=== PATIENT | female | born 1955 | race Caucasian/White ===

== ENCOUNTER → 2017-04-05 | Outpatient (CLI) | payer BC ==
[~2017-04-05] MED LIST: BCPILLS PO; CEPH500C PO
--- NOTE | 2017-04-06 16:02 | MAMMOGRAPHY REPORT ---
BILATERAL DIGITAL SCREENING MAMMOGRAM TOMOSYNTHESIS WITH CAD: 04/05/2017 CLINICAL HISTORY: Routine screening. Patient has no complaints. TECHNIQUE: Breast tomosynthesis in addition to standard 2D mammography was performed. Current study was also evaluated with a Computer Aided Detection (CAD) system. COMPARISON: Comparison is made to exams dated: 03/22/2016 mammogram, 03/13/2015 mammogram, 03/12/2014 ma mmogram, 03/09/2013 mammogram, 03/08/2012 mammogram, and 03/01/2011 mammogram - [facility]ter. BREAST COMPOSITION: The tissue of both breasts is heterogeneously dense, which may obscure small mas ses. FINDINGS: There are new regional microcalcifications in the upper outer quadrant of the left breast in addition to approximately 3 asymmetries with possible associated architectural distortion. Additi onal spot magnification views and targeted ultrasound are recommended. There are possible grouped mi crocalcifications in the 12:00 posterior right breast, for which additional spot magnification views are recommended. No other other suspicious finding is identified bilaterally. IMPRESSION: ACR BI-RADS CATEGORY 0: INCOMPLETE EVALUATION: NEED ADDITIONAL IMAGING EVALUATION The new regional microcalcifications in the left upper outer quadrant, left breast asymmetries and po ssible right breast microcalcifications need additional imaging evaluation (30 minutes). The patient will be called to schedule an appointment. Approximately 10% of breast cancers are not detected with mammography. A negative mammographic report should not delay biopsy if a clinically suggestive mass is present. Fidelia Loya M.D. ay/:04/05/2017 19:13:34 Forensic Materials Engineer: Crystal PANDYA(Josemanuel)(Norma)(MURALI), [facility] letter sent: Addl Imaging 0 BI-RADS Code: ACR BI-RADS Category 0: Incomplete Evaluation: Need Additional Imaging Evaluation
== END | disposition home or self-care (01) ==
LOC: C.MAMM 07:55
PROVIDERS: ATTEND Orthopaedic Surgery
DX: Z12.31 Encounter for screening mammogram for malignant neoplasm of breast (principal); R92.0 Mammographic microcalcification found on diagnostic imaging of breast; R92.8 Other abnormal and inconclusive findings on diagnostic imaging of breast

== ENCOUNTER → 2017-04-22 | Outpatient (CLI) | payer BC ==
--- NOTE | 2017-04-25 15:53 | MAMMOGRAPHY REPORT ---
BILATERAL DIGITAL DIAGNOSTIC MAMMOGRAM TOMOSYNTHESIS AND TARGETED LEFT ULTRASOUND: 04/22/2017 CLINICAL HISTORY: Callback from screening mammogram for bilateral breast calcifications and left ranjan st asymmetries. TECHNIQUE: Breast tomosynthesis in addition to standard 2D mammography was performed. Bilateral spo t magnification CC and ML views and spot compression left CC and MLO tomosynthesis images including C views were obtained. COMPARISON: Comparison is made to exams dated: 04/05/2017 mammogram, 03/22/2016 mammogram, 03/13/2015 ma mmogram, 03/12/2014 mammogram, 03/09/2013 mammogram, and 03/08/2012 mammogram - [facility] nter. BREAST COMPOSITION: The tissue of both breasts is heterogeneously dense, which may obscure small mas ses. FINDINGS: Spot magnification views of the left breast demonstrate new grouped pleomorphic calcificat ions within the left upper outer quadrant, with extent of calcifications measuring approximately 3.8 x 3.8 x 3.5 cm. The previously described asymmetries seen within the left superior breast are less p rominent on the spot compression views, with no clear masses or areas of architectural distortion not ed mammographically. Spot magnification views of the right breast demonstrate a single punctate zane gn calcification in the right 12:00 breast which is stable compared to prior exams, without a suspici ous cluster of calcifications noted. Targeted ultrasound was performed of the left breast in the region of the mammographic asymmetries an d calcifications. In the left breast at 5:00, 3 cm from the nipple, there is a possible hypoechoic n on-circumscribed 6 x 5 mm mass. In the left breast at 4:00 periareolar region, there is a hypoechoic oval circumscribed 3 x 5 mm mass which may represent a complicated cyst versus solid mass. In the l eft 4:00 subareolar breast, there is a round circumscribed hypoechoic mass which measures 3 x 3 mm, w hich may represent a complicated cyst versus solid mass. In the left breast at 3:00, 3 cm from the n ipple, there is an irregular hypoechoic solid appearing mass which measures 4 x 4 x 4 mm. In the lef t 2:00 periareolar breast, there is an oval isoechoic circumscribed 7 x 8 x 4 mm mass, which has the appearance of a normal fat lobule during real-time scanning. In the left breast at 12:00, 2 cm from the nipple, there is an oval mixed echogenicity, partially anechoic and partially isoechoic mass whic h measures 7 x 6 x 3 mm, which may represent a cyst cluster. Ultrasound of the left axilla demonstra lauri morphologically normal left axillary lymph nodes, without evidence of axillary adenopathy. Given that the calcifications are new, they are indeterminate and stereotactic biopsy is recommended for further evaluation. Also recommend ultrasound guided biopsy of one of the masses seen on ultraso und, likely the irregular mass in the left 3:00 breast. IMPRESSION: ACR BI-RADS CATEGORY 4C: MODERATE SUSPICION FOR MALIGNANCY, TARGETED ULTRASOUND ACR BI-R ADS CATEGORY 4C: MODERATE SUSPICION FOR MALIGNANCY 1. New pleomorphic calcifications in the left upper outer quadrant, with extent of calcifications me asuring up to 3.8 cm. The calcifications are indeterminate and stereotactic biopsy is recommended fo r further evaluation. 2. A few small hypoechoic masses seen on ultrasound within the left breast at 12:00, 3:00, 4:00, and 5:00. Recommend ultrasound guided biopsy of one of the masses, likely the irregular 4 mm mass at 3: 00. If pathology results are malignant, recommend bilateral breast MRI to evaluate the extent of dis ease. 3. No suspicious calcifications within the right breast on additional views. A phone call was made to the physician's office to confirm faxed results were received. The patient has been verbally notified of the results. She scheduled the biopsies before leaving the department. Approximately 10% of breast cancers are not detected with mammography. A negative mammographic report should not delay biopsy if a clinically suggestive mass is present. Kym Shea M.D. ah/:04/22/2017 16:49:26 Asphalt Mixing Machine Operator: Trisha Hernandez, [facility] letter sent: Abnormal 4/5 BI-RADS Code: ACR BI-RADS Category 4C: Moderate Suspicion For Malignancy Ultrasound BI-RADS: ACR BI- RADS Category 4C: Moderate Suspicion For Malignancy
== END | disposition home or self-care (01) ==
LOC: C.MAMM 10:25
PROVIDERS: ATTEND Orthopaedic Surgery
DX: R92.1 Mammographic calcification found on diagnostic imaging of breast (principal); N64.89 Other specified disorders of breast; N63 Unspecified lump in breast

== ENCOUNTER → 2017-04-26 | Outpatient (CLI) | payer BC ==
--- NOTE | 2017-04-26 13:50 | Discharge Instructions ---
Discharge Instructions Procedure Procedure Date: Apr 26, 2017. Reason for visit: Left Calcs/Us Core Left Mass. Discharge Discharge Date: Apr 26, 2017. Discharge Diagnosis: post left breast ultrasound guided core biopsy 3:00 and stereotactic guided biopsy approx 2:00 Instructions Activity Recommendations: Additional Limitations (see below) Return to School/Work: no limitations Recommended Home Diet: No Limitations Provider Instructions: ACTIVITY RECOMMENDATIONS: * No lifting, pushing, pulling or exercising the affected side for three days. RETURN TO SCHOOL/WORK: * You may return to work/school after the procedure, but do not perform any strenuous activities for 24 to 48 hours. MEDICATIONS: * Tylenol (two 325 mg) every four to six hours if needed for mild pain (if not allergic to Tylenol). DIET: * Resume previous diet. SPECIAL CARE INSTRUCTIONS: * Keep biopsy site dry for 24 hours. May shower after 24 hours, but do not soak (bathe) incision. * May remove Tegaderm (plastic patch) tomorrow AFTER showering. * Leave the steri-strips on for one week. Allow the steri-strips to fall off by themselves. If not off after one week, you may remove them. You may place a Bandaid crosswise over the strips, if desired. * Apply ice 10 minutes on and 10 minutes off as needed. * Wear a bra at bedtime to sleep more comfortably for 2-3 days. * Your referring physician should have the results after approximately 5 to 7 business days. * Call for unusual bleeding, fever, drainage, etc or if you have any questions call [phone] during normal business hours or after hours call Dr Loya, . FOLLOW UP VISIT: Follow-up with Referring Physician as scheduled. Allergies Coded Allergies: No Known Allergies (Verified Allergy, Unknown, 06/18/08) Paresh Laurent Recommendations: Call your doctor if: * Temperature above 101 degrees * Pain not relieved by pain medicine ordered * There is increased drainage or redness from any incision * You have any unanswered questions or concerns. Your Doctors Instructions noted above were prepared by provider Fidelia Loya. Patient Signature Section: Patient Instructions Signature Page Julianna Velázquez Patient (or Guardian) Signature/Date: I have read and understand the instructions given to me by my caregivers. Caregiver/RN/Doctor Signature/Date: The above-named patient and/or guardian has received patient instructions on this date. + Original Patient Signature Page (only) stays with chart. Please make copy for patient.
--- NOTE | 2017-04-27 14:21 | MAMMOGRAPHY REPORT ---
ULTRASOUND GUIDED BIOPSY LEFT BREAST: 04/26/2017 CLINICAL HISTORY: Irregular hypoechoic 4 mm mass in the 3:00 left breast and segmental pleomorphic mi crocalcifications in the upper outer quadrant of the left breast. Patient presents for ultrasound-gu ided core biopsy of the mass identified on ultrasound, and stereotactic guided biopsy of the microcal cifications. COMPARISON: Comparison is made to exams dated: 04/22/2017 ultrasound, 04/22/2017 mammogram, 04/05/2017 ma mmogram, 03/22/2016 mammogram, 03/13/2015 mammogram, and 03/12/2014 mammogram - [facility]. PATIENT CONSENT: The procedure, risks and benefits were discussed with the patient and informed conse nt was obtained both verbally and in writing. Specific risks to this procedure include: bleeding, in fection, puncture of adjacent structure, nontarget biopsy, sampling error, pain, metal allergy and me dication reaction. ULTRASOUND PROCEDURE DESCRIPTION: A time out was performed and the left breast was agreed as the site of biopsy. The skin was prepped and draped in the usual sterile fashion. The angular 4 mm solid mass in the 3:00 left breast was chosen as the target for biopsy. Subcutaneous and intraparenchymal 1% bu ffered lidocaine, with and without epinephrine, was administered as local anesthesia. A skin incision was made. Through the incision, 3 samples were taken with a 14 gauge Achieve biopsy device. A ribbo n shaped metallic marker was placed at the biopsy site. Hemostasis was achieved after manual compress ion. The patient tolerated the procedure well and there was no immediate complication. The samples w ere sent to the pathology department in an appropriately labeled container. Immediately following the ultrasound-guided core biopsy in the left breast, a stereotactic guided lef t breast biopsy was performed of the segmental pleomorphic microcalcifications also in the left breas t. The mammograms obtained after both procedures demonstrate 2 metallic biopsy markers within the left b reast. The ribbon-shaped clip in the 3:00 posterior breast denotes the ultrasound guided core biopsy , and the dumbbell shaped metallic biopsy marker denotes the stereotactic guided biopsy. The the mar kers are located 3.2 cm distal to each other on the MLO projection, and 1.7 cm apart on the CC projec tion. IMPRESSION: ULTRASOUND GUIDED BIOPSY 1. Status post ultrasound-guided core biopsy of an angular hypoechoic 4 mm solid mass in the 3:00 le ft breast, with ribbon-shaped biopsy marker clip placed at the site. 2. A stereotactic biopsy was also performed in the left breast approximately 2:00 axis during the sa me appointment, and a dumbbell-shaped biopsy marker clip was placed at that site. The patient will receive notification of the biopsy results from her referring physician. Fidelia Loya M.D. ay/:04/26/2017 15:11:31 Attending Technologist: Dr. Fidelia Loya, [facility] Crate Repairer: Roberto PANDYA(R)(M), [facility]
--- NOTE | 2017-04-27 14:21 | MAMMOGRAPHY REPORT ---
THIS REPORT HAS BEEN AMENDED. MULTIPLE STEREOTACTIC GUIDED BIOPSIES LEFT BREAST: 04/26/2017 CLINICAL HISTORY: Irregular hypoechoic 4 mm mass in the 3:00 left breast and segmental pleomorphic mi crocalcifications in the upper outer quadrant of the left breast. Patient presents for ultrasound-gu ided core biopsy of the mass identified on ultrasound, and stereotactic guided biopsy of the microcal cifications. COMPARISON: Comparison is made to exams dated: 04/22/2017 ultrasound, 04/22/2017 mammogram, 04/05/2017 ma mmogram, 03/22/2016 mammogram, 03/13/2015 mammogram, and 03/12/2014 mammogram - [facility]. PATIENT CONSENT: After explaining the risks, benefits and alternatives of the procedure to the patien t, informed consent was obtained both verbally and in writing. Specific risks include: Bleeding, inf ection, puncture of adjacent structure, pain, nontarget biopsy, sampling error, metal allergy and med ication reaction. PROCEDURE DESCRIPTION: A time-out was performed and the left breast was confirmed as the site of biop sy. The patient was placed prone on the stereotactic biopsy table and the breast was placed in latera lmedial compression. A product steward image was obtained that demonstrated the segmental microcalcifications in question. They are amenable to sterotactic biopsy. Then +15 and -15 stereo pair images were obt ained. The calcifications were targeted utilizing the coordinates obtained by the computer. The skin was prepped with Betadine. 1% Lidocaine with and without epinipherine was administered as local anes thesia. A small skin incision was made. Through the incision, the needle was inserted to the depth d etermined by the computer. 6 samples were obtained using a [employer] 9-gauge vacuum-assisted biopsy device. The specimen radiograph demonstrated several customer service representative teacher microcalcifications, therefore, a metallic marker was placed at the biopsy site. There was no immediate complication. Hemostasis was achieved after several minutes of manual compression. The samples were sent to pathology in 1 approp riately labeled container, given that calcifications were noted within every core specimen. An ultrasound-guided core biopsy was also performed for an irregular 4 mm hypoechoic mass in the 3:00 left breast. Please refer to the ultrasound guided core biopsy report for full detail. CC and ML views of the left breast were obtained after both the ultrasound guided core biopsy and penelope reotactic guided biopsy. A new ribbon-shaped clip is seen in the 3:00 axis, with a small, 1 cm nishant olu at that biopsy site. A dumbbell-shaped biopsy marker clip denotes the stereotactic biopsy in th e approximate 2:00 middle one third of the left breast. The biopsy marker clips are located 3.2 cm d istal to each other in the lateral projection, and 1.7 cm distal to each other in the CC projection. IMPRESSION: STEREOTACTIC GUIDED BIOPSY 1. Status post left breast stereotactic guided biopsy of segmental pleomorphic microcalcifications i n the upper outer quadrant of the left breast, with dumbbell-shaped metallic biopsy marker placed at the site. 2. Ultrasound guided core biopsy was also performed in the left breast 3:00 axis. The patient will receive notification of the biopsy results from her referring physician. Fidelia Loya M.D. ay/:04/26/2017 15:15:31 Attending Technologist: Trisha PANDYA(R)(M), [facility] Valve Machine Operator: Roberto PANDYA(R)(M), [facility] AMENDMENT: 05/02/2017 Fidelia Loya M.D. Pathology results from the stereotactic guided biopsy of segmental microcalcifications in the lateral left breast yielded high-grade DCIS multifocal E distributed in the submitted tissue, the largest fo cus measuring 3 mm in greatest dimension. Estrogen receptor negative and weekly progesterone recepto r positive. The pathology results are concordant with the imaging appearance. It should be noted that the new segmental microcalcifications are approximately 3.5 x 3.8 x 3.8 cm oc cupying the approximate 2:00 through 4:00 axes posterior through anterior one third of the breast. The ultrasound-guided core biopsy performed at the same time of an irregular hypoechoic mass in the 3 :00 left breast yielded benign breast parenchyma. The pathology results are concordant with the imag ing appearance. However, other masses were identified throughout the lateral left breast on prior diagnostic ultrasou nd. With the newly diagnosed DCIS, and dense breasts, would recommend further evaluation with breast MRI prior to definitive treatment to assess for any other enhancement of the other masses seen in th e left breast, and also assess for any possible contralateral disease. These recommendations were discussed with Dr. Velázquez on 05/02/2017.
--- NOTE | 2017-04-29 08:55 | MAMMOGRAPHY REPORT ---
UNILATERAL LEFT DIGITAL DIAGNOSTIC MAMMOGRAM TOMOSYNTHESIS: 04/26/2017 CLINICAL HISTORY: Status post left breast ultrasound guided core biopsy of an irregular mass in the 3 :00 axis, and stereotactic guided biopsy of segmental microcalcifications in the upper outer quadrant . Please refer to the reports from left breast stereotactic biopsy and ultrasound guided core biopsy pe rformed at the same time for full detail. IMPRESSION: POST PROCEDURE IMAGING FOR MARKER PLACEMENT Please refer to the reports from left breast stereotactic biopsy and ultrasound guided core biopsy pe rformed at the same time for full detail. Approximately 10% of breast cancers are not detected with mammography. A negative mammographic report should not delay biopsy if a clinically suggestive mass is present. Fidelia Loya M.D. ay/:04/26/2017 14:02:13 Instrument Checker: Roberto PANDYA(R)(M), [facility] BI-RADS Code: Post Procedure Imaging For Marker Placement
== END | disposition home or self-care (01) ==
LOC: C.MAMM 12:21
PROVIDERS: ATTEND Orthopaedic Surgery
DX: R92.0 Mammographic microcalcification found on diagnostic imaging of breast (principal); D05.12 Intraductal carcinoma in situ of left breast

== ENCOUNTER → 2017-05-03 | Outpatient (CLI) | payer BC ==
--- NOTE | 2017-05-03 15:57 | DIAGNOSTIC IMAGING REPORT ---
TWO VIEW CHEST CLINICAL HISTORY: Preoperative examination. FINDINGS: PA and lateral chest radiographs are obtained. No prior studies are available for comparison at the time of dictation. The cardiomediastinal silhouette is unremarkable. Calcified granuloma is noted in the left lower lobe. The lungs and pleural spaces are otherwise clear. There is no pneumothorax. The bony thorax appears intact. Cholecystectomy clips are seen in the right upper quadrant. IMPRESSION: No active disease in the chest. Electronically signed by: Porfirio Woodard M.D. 05/03/2017 3:56 PM Dictated Date/Time: 05/03/2017 3:55 PM
[2017-05-03 16:34] LABS: BASO % 0.2 %; BASO ABS # 0.01 K/uL (0-0.2); COMPLETE YES; EOS % 0.6 %; HEMATOCRIT 39.9 % (37-47); IG% 0.2 %; LYMPH ABS # 1.28 K/uL (1.2-3.4); MEAN CELL VOLUME 96.1 fL (80-100); MEAN CORPUSCULAR HEMOGLOBIN 31.6 pg (25-34); MEAN CORPUSCULAR HGB CONC 32.8 g/dl (32-36); MEAN PLATELET VOLUME 10.8 fL (7.4-10.4); MONO % 8.8 %; NEUT % 66.2 %; PLATELET COUNT 294 K/uL (130-400); RED BLOOD COUNT 4.15 M/uL (4.2-5.4); WHITE BLOOD COUNT 5.33 K/uL (4.8-10.8)
[2017-05-03 16:57] LABS: ALT/SGPT 23 U/L (12-78); AST/SGOT 31 U/L (15-37); BLOOD UREA NITROGEN 12 mg/dl (7-18); BUN/CREATININE RATIO 17.2 (10-20); CALCIUM 9.7 mg/dl (8.5-10.1); CARBON DIOXIDE 30 mmol/L (21-32); CHLORIDE 104 mmol/L (98-107); CREATININE 0.68 mg/dl (0.60-1.20); GLUCOSE 98 mg/dl (70-99); POTASSIUM 4.4 mmol/L (3.5-5.1); SODIUM 139 mmol/L (136-145)
[2017-05-03 16:59] LABS: ALB/GLOB RATIO 1.1 (0.9-2); ALKALINE PHOSPHATASE 69 U/L (45-117)
== END | disposition home or self-care (01) ==
LOC: C.CPL 15:16
PROVIDERS: ATTEND Orthopaedic Surgery
DX: D05.90 Unspecified type of carcinoma in situ of unspecified breast (principal)

== ENCOUNTER → 2017-05-04 | Outpatient (CLI) | payer BC ==
[~2017-05-04] MED LIST changes: +GADAVIST IV PRN
--- NOTE | 2017-05-05 12:39 | MAMMOGRAPHY REPORT ---
BREAST MRI OF BOTH BREASTS : 05/04/2017 CLINICAL HISTORY: 61-year-old woman with recently diagnosed left breast DCIS. She presents for breas t MRI evaluation of extent of disease and also to exclude contralateral disease. COMPARISON: Comparison is made to exams dated: 04/26/2017 ultrasound biopsy, 04/26/2017 mammogram, 04/15 stereotactic biopsy, 04/22/2017 ultrasound, 04/22/2017 mammogram, and 04/05/2017 mammogram - [facility]. TECHNIQUE: Using a 1.5 Migdalia magnet and dedicated breast coil, multisequence axial images were obtain ed through the breasts. After uneventful IV administration of 5.5 mL of Gadavist, dynamic multiphase contrast-enhanced axial images, and sagittal postcontrast were obtained. Temporal subtraction axial images and 3-D MIP images are provided. Everything was then reviewed on a 3-D workstation, [employer]. FINDINGS: Right breast: There is mild background parenchymal enhancement. There is conspicuous linear enhancem ent in the 5:00 middle one third of the right breast measuring 5 x 3 mm. There are associated washou t kinetics and no significant T2 hyperintensity. This is best seen on axial page 82/116, sagittal pa ge 89/120. This is indeterminate and warranting targeted second look ultrasound. If second look ult rasound is unyielding, MRI guided biopsy may be needed. Another conspicuous angular enhancing focus is identified in the 12:00 posterior right breast measuring 3 x 4 mm (axial page 63/116, sagittal pag e 90/120), which demonstrates central washout kinetics and is indeterminate. Targeted second look ul trasound is recommended, with possible ultrasound-guided core biopsy. A few other enhancing foci are scattered in the right breast. No dominant enhancing mass, focal area of architectural distortion o r skin thickening is identified. The retromammary fat is intact. No suspicious right axillary, subp ectoral or intramammary lymphadenopathy. Left breast: There is mild background parenchymal enhancement. There is confluent clumped non-mass e nhancement throughout the left breast from approximate 1:00 to 2:00 axes through 4:00 to 5:00 axes, i nvolving the middle and posterior one third of the breast, spanning approximately 5 cm in craniocauda l by 3.5 cm in AP by 3 cm in transverse dimension. Susceptibility artifact is seen in the 2:00 middl e one third of the left breast, denoting the site of stereotactic biopsy which yielded high-grade DCI S. A second biopsy site denoted by a second area of susceptibility artifact performed with ultrasoun d guidance in the 3:00 axis of the left breast yielded benign pathology results. However, there are other areas of mass enhancement within the left breast, particularly the 12:00, 4:00 anterior and 5:0 0 posterior breast. There is a heterogeneous rim-enhancing mass in the 12:00 anterior left breast me asuring 6 x 6 x 9 mm, with associated plateau and washout kinetics (axial page 52/116 and sagittal pa ge 26/120). It is T2 hyperintense, and likely correlates with the mass identified in the 12:00 axis on ultrasound. A round homogeneously enhancing mass in the 4:00 anterior left breast measures 4 x 4 mm and demonstrates washout kinetics (axial page 77/116, sagittal page 22/120). This mass is T2 hypo intense and may correlate with the rounded mass seen in the 4:00 retroareolar left breast on prior ul trasound. An ovoid masslike area of enhancement in the 5:00 posterior left breast is adjacent to the clumped non-mass enhancement but still remains a discrete mass. This is thought to correlate with t he mass identified in the 5:00 axis on prior ultrasound. If breast conservation therapy is being con sidered, would recommend biopsy of the masses in the 12:00 and 4:00 axes. No suspicious left axillary, subpectoral or internal mammary lymphadenopathy is identified. No focal skin thickening or nipple retraction. The clumped non-mass enhancement abuts the left pectoralis mu scle, but there is no definite muscle enhancement to suggest invasion. IMPRESSION: ACR BI-RADS CATEGORY 4: SUSPICIOUS 1. There is susceptibility artifact from a biopsy marker clip in the 2:00 middle one third of the le ft breast, denoting the recent biopsy-proven DCIS. Clumped non-mass enhancement likely representing DCIS surrounds the biopsy marker clip and extends throughout the left upper outer and lower outer jailene drants spanning approximately 3.0 x 3.5 x 5.0 cm. 2. There are at least 3 discrete subcentimeter enhancing masses in the left breast at 12:00 anterior , 4:00 anterior and 5:00 posterior, thought to correlate with masses identified on prior diagnostic u ltrasound. If breast conservation therapy is desired, would biopsy the masses in the 12:00 and 4:00 axes. 3. Scattered foci of enhancement throughout the right breast with a discrete angular 3 x 4 mm focus of enhancement in the 12:00 posterior, and linear non-mass enhancement in the 5:00 right breast measu ring 5 x 3 mm, for which targeted second look ultrasound with possible ultrasound-guided core biopsie s are recommended. If second look ultrasound is unyielding, MRI guided biopsy may be needed, particu larly for the linear enhancement seen in the 5:00 axis. 4. No suspicious axillary, subpectoral or intramammary lymphadenopathy. No pectoralis muscle enhanc ement to suggest invasion. The patient will receive written notification of the results. Fidelia Loya M.D. ay/:05/04/2017 22:10:16 [employer]: merchandise examiner, [facility] BI-RADS Code: ACR BI-RADS Category 4: Suspicious
== END | disposition home or self-care (01) ==
LOC: C.MRI 19:35
PROVIDERS: ATTEND Orthopaedic Surgery
DX: N63 Unspecified lump in breast (principal)